=== PATIENT | female | born 1955 | race Caucasian/White ===

== ENCOUNTER 2017-10-11 19:34 | Observation (INO) ==
--- NOTE | 2017-10-11 20:35 | Emergency Department Note ---
Disposition Clinical Impression: Altered mental status, History of fall Disposition: Admitted As Inpatient Condition: Fair Time of Disposition: 22:20 General Adult HPI - General Chief complaint: ED Neuro Symptoms/Deficit Stated complaint: headache, neuro symptoms Time Seen by Provider: 10/11/17 19:49 Source: family Limitations: no limitations Nursing Notes Reviewed: Yes Vital Signs Reviewed: Yes - History of Present Illness HPI Narrative: Patient is a 62-year-old female who presents to the ED with her with complaints of right upper back pain, CHANEY, and difficulty speaking. Patient's states that she was seen initially approximately 7 weeks ago after a fall at which time she had a brain bleed, facial fracture, and neck fracture. She completed 6 weeks of therapy under [place]'s care and was released as a patient approximately one week ago. She was improving significantly up until approximately one week ago. She was seen 2 days ago after a fall with similar symptoms including slow speech, instable gait, and continued upper back pain. The patient's states she is similar now to when she had a concussion. She states the pain in her back is the most severe on the right side near her shoulder blade and this is her main concern. She otherwise denies any visual changes, weakness, numbness, tingling, weight loss, nausea, vomiting, diarrhea, abdominal pain, CP, or SOB. Pain Scale: 9 - Related Data Home Medications Medication Instructions Recorded Confirmed RX: No Known Home Drugs 10/11/17 10/11/17 Allergies Allergy/AdvReac Type Severity Reaction Status Date / Time acetaminophen [From Percocet] Allergy See Verified 08/13/17 10:09 Comments Oxycodone [From Percocet] Allergy See Verified 08/13/17 10:09 Comments diphenhydramine AdvReac See Verified 08/13/17 10:09 [From Benadryl] Comments ibuprofen AdvReac See Verified 08/13/17 10:09 Comments Constitutional: Denies: fever, chills, weakness, weight change Eyes: Denies: eye pain, vision change Cardiovascular: Denies: chest pain, palpitations Respiratory: Denies: cough, dyspnea, wheezes Gastrointestinal: Denies: abdominal pain, nausea, vomiting, diarrhea Genitourinary: Denies: dysuria, hematuria Musculoskeletal: Reports: back pain Integumentary: Denies: rash, abrasion Neurological: Reports: headache, abnormal gait Psychiatric: Reports: depression. Denies: anxiety Endocrine: Denies: fatigue Past Medical History - Past Medical History Source: patient, obtained from family Medical history: Reports: arthritis, cancer, CVA Surgical history: Reports: breast surgery (Bilateral mastectomy), cancer surgery , orthopedic, other (Cervical fixation) Psychiatric history: Reports: depression - Social History Smoking Status: Current every day smoker Smokeless Tobacco Status: No Alcohol use: Reports: rarely Drug use: Reports: none Physical Exam - General Limitations: no limitations General appearance: alert, in no apparent distress - Head Head exam: atraumatic, normocephalic - Eye Eye exam: Present: normal appearance, PERRL, EOMI. Absent: nystagmus - Neck Neck exam: Present: normal inspection, trachea midline - Chest Chest inspection: Present: normal inspection, symmetric chest wall rise. Absent : tenderness, rash - Respiratory Respiratory exam: Present: normal lung sounds bilaterally. Absent: respiratory distress, wheezes, stridor - Cardiovascular Cardiovascular exam: Present: regular rate, normal rhythm - Abdominal Exam Abdominal exam: Present: soft, Non-Tender. Absent: distention, guarding - Extremities Exam Extremities exam: Present: normal inspection. Absent: pedal edema - Back Exam Back exam: Present: tenderness (right upper T3) - Expanded Neurological Exam Patient oriented to: Present: person (Knows the president, states the year is 1981, slow to speak), place. Absent: time Speech: Present: expressive aphasia (able to communicate but slow to express thoughts) Cranial nerves: EOM function (II, III, IV, ): Normal, facial sensation (V): Normal, facial palsy (VII): Normal, gag reflex (IX): Normal, spinal accessory function (XI): Normal, tongue deviation (XII): Normal Cerebellar function: finger to nose: Normal, heel to guillory: Normal Motor strength - LUE: 5/5 Motor strength - RUE: 5/5 Motor strength - LLE: 5/5 Motor strength - RLE: 5/5 Upper motor neuron exam: jesse neglect: Absent bilaterally, pronator drift: Absent bilaterally, Babinski sign: Absent bilaterally Sensory exam upper extremity: light touch: Normal, 2 point discrimination: Normal Sensory exam lower extremity: light touch: Normal, pin prick: Normal DTR: bicep (L): 2+, bicep (R): 2+, patellar (L): 2+, patellar (R): 2+, Achilles tendon (L): 2+, Achilles tendon (R): 2+ Coma Scale Eye Opening: Spontaneous Coma Scale Motor Response: Obeys Commands Coma Scale Verbal Response: Oriented Coma Scale Total: 15 - Psychiatric Psychiatric exam: Present: normal affect Course - Reevaluation(s) Reevaluation #1: Discussed with patient and family who do not feel comfortable keeping the patient at home given her multiple recent falls especially at nighttime. Time: 21:56 Reevaluation #2: Spoke with patient and regarding multiple pulmonary nodules seen again on CT. Encouraged smoking cessation with five minute conversation and impressed upon them the need for further evaluation of this nodule. Time: 22:08 Reevaluation #3: Spoke with Dr. Muro, who will admit the patient with consult to Dr. Ramirez. Time: 22:20 - Consultations Consultation #1: discussed case with neurology who recommends MRI and rehabilitation. Agrees to consult on admission if necessary. Time: 21:40 Vital Signs Temperature 97.7 F 10/11/17 19:36 Pulse Rate 87 10/11/17 19:36 Respiratory Rate 16 10/11/17 19:36 Blood Pressure 112/64 10/11/17 19:36 O2 Sat by Pulse Oximetry 96 10/11/17 19:36 Temperature 97.7 F 10/11/17 19:36 Pulse Rate 58 10/11/17 22:49 Respiratory Rate 14 10/11/17 22:49 Blood Pressure 101/84 10/11/17 22:49 O2 Sat by Pulse Oximetry 97 10/11/17 22:49 Oxygen Delivery Oxygen Delivery Room Air Medical Decision Making - [facility] Narrative Medical decision making narrative: Patient presented with stroke-like symptoms including CHANEY, weakness, and difficulty speaking status post fall two days prior. CT head and neck revealed no acute hemorrhage or fracture. CBC and CMP were unremarkable. Chest XR revealed no acute findings. Her pain continues to persist in her upper back. With her many recent falls CT lumbar and thoracic spine were ordered which revealed no acute fractures. Given that she has seemingly reverted back to her mental status which occurred after her concussion, it is likely she is again post-concussive. Dr. Ramirez, neurology recommends MRI to further evaluate and potentially neuro rehab. Will admit under Dr. Muro who has accepted the patient with consult to neurology. - Medical Records Medical records reviewed: Yes I reviewed the patient's medical records. - Lab Data Lab results reviewed: Yes I reviewed the patient's lab results. Result diagrams: 10/11/17 20:27 10/11/17 20:27 Lab Results 10/11/17 10/11/17 Range/Units 20:27 20:27 WBC 6.7 (4.3-11.1) K/mcL RBC 3.95 (3.82-4.97) M/mcL Hgb 12.5 (11.5-15.4) g/dL Hct 36.0 (35.3-44.9) % MCV 91.1 (83.0-100.0) fL MCH 31.6 (28.0-33.3) pg MCHC 34.7 (31.6-35.5) g/dL RDW 14.9 H (11.5-14.5) % Plt Count 336 (140-400) K/mcL MPV 9.1 L (9.4-12.4) fL Immature Gran % 0.3 (0-4) % Seg Neutrophils % 57.3 % Lymphocytes % 32.0 % Monocytes % 6.1 % Eosinophils % 3.7 % Basophils % 0.6 % Neutrophils # 3.9 (1.6-8.9) K/mcL Lymphocytes # 2.2 (0.6-4.6) K/mcL Monocytes # 0.4 (0.0-1.3) K/mcL Eosinophils # 0.3 (0.0-0.6) K/mcL Basophils # 0.0 (0.0-0.2) K/mcL Sodium 137 (136-145) mEq/L Potassium 3.7 (3.5-5.1) mEq/L Chloride 105 (98-107) mEq/L Carbon Dioxide 23 (23-29) mEq/L BUN 12 (8-23) mg/dL Creatinine 0.73 (0.60-1.20) mg/dL Est GFR ( Amer) > 60 (> 60) Est GFR (Non-Af Amer) > 60 (> 60) BUN/Creatinine Ratio 16 (6-26) Glucose 102 (70-105) mg/dL Calculated Osmolality 284 (280-300) Calcium 9.6 (8.6-10.3) mg/dL - Radiology Data Radiology results reviewed: Yes I reviewed the patient's radiology results. Cervical Spine CT 10/11/17 19:52 IMPRESSION: No acute abnormality of the cervical spine. D/ / Brent Robert MD / Brent Robert MD Interpreting Provider: Brent Robert MD Chest X-Ray 10/11/17 19:52 IMPRESSION: No significant findings in the chest. D/ / Steve Meier MD / Steve Meier MD Interpreting Provider: Steve Meier MD Head CT 10/11/17 19:52 IMPRESSION: No acute intracranial abnormality. D/ / Eyad Ding MD / Eyad Ding MD Interpreting Provider: Eyad Ding MD Cervical Spine CT 10/11/17 19:52 IMPRESSION: No acute abnormality of the cervical spine. D/ / Brent Robert MD / Brent Robert MD Interpreting Provider: Brent Robert MD Chest X-Ray 10/11/17 19:52 IMPRESSION: No significant findings in the chest. D/ / Steve Meier MD / Steve Meier MD Interpreting Provider: Steve Meier MD Head CT 10/11/17 19:52 IMPRESSION: No acute intracranial abnormality. D/ / Eyad Ding MD / Eyad Ding MD Interpreting Provider: Eyad Ding MD Lumbar Spine CT 10/11/17 20:58 IMPRESSION: 1. No acute abnormality in the thoracic or lumbar spine. 2. Chronic degenerative changes most notable in the lumbar spine. Mild degree of scoliosis also noted. 3. Several pulmonary nodules bilaterally. These were evaluated on a recent CT chest. Follow-up recommendations provided on that study. D/ / Steve Meier MD / Steve Meier MD Interpreting Provider: Steve Meier MD Thoracic Spine CT 10/11/17 20:58
[2017-10-11 20:39] LABS: Basophils % 0.6 %; Eosinophils # 0.3 K/mcL (0.0-0.6); Eosinophils % 3.7 %; Hemoglobin 12.5 g/dL (11.5-15.4); Immature Granulocytes % 0.3 % (0-4); Lymphocytes # 2.2 K/mcL (0.6-4.6); Mean Corpuscular HGB Conc 34.7 g/dL (31.6-35.5); Mean Corpuscular Hemoglobin 31.6 pg (28.0-33.3); Mean Corpuscular Volume 91.1 fL (83.0-100.0); Mean Platelet Volume 9.1 fL (9.4-12.4); Monocytes # 0.4 K/mcL (0.0-1.3); Monocytes % 6.1 %; Neutrophils # 3.9 K/mcL (1.6-8.9); Platelet Count 336 K/mcL (140-400); Red Blood Count 3.95 M/mcL (3.82-4.97); Red Cell Distribution Width 14.9 % (11.5-14.5); Segmented Neutrophils % 57.3 %
[2017-10-11 20:57] LABS: BUN/Creatinine Ratio 16 (6-26); Blood Urea Nitrogen 12 mg/dL (8-23); Calcium 9.6 mg/dL (8.6-10.3); Carbon Dioxide 23 mEq/L (23-29); Chloride 105 mEq/L (98-107); Glucose 102 mg/dL (70-105); Osmolality,Calculated 284 (280-300); Potassium 3.7 mEq/L (3.5-5.1); Sodium 137 mEq/L (136-145); eGFR For African Americans > 60 (> 60); eGFR For Non-African Americans > 60 (> 60)
[2017-10-11] MEDS ORDERED: *HR* FentaNYL (PF) 100 MCG/2 ML VIAL IVP ONE (20:58)
--- NOTE | 2017-10-11 21:49 | Emergency Department Note ---
Disposition Clinical Impression: Altered mental status, History of fall Disposition: Admitted As Inpatient Condition: Fair Neuro HPI - General Chief Complaint: ED Neuro Symptoms/Deficit Stated Complaint: headache, neuro symptoms Time Seen by Provider: 10/11/17 19:49 Source: family Limitations: no limitations Nursing Notes Reviewed: Yes Vital Signs Reviewed: Yes - Related Data Home Medications: Home Medications Medication Instructions Recorded Confirmed No Known Home Drugs 10/11/17 10/11/17 Allergies/Adverse Reactions: Allergies Allergy/AdvReac Type Severity Reaction Status Date / Time acetaminophen [From Percocet] Allergy See Verified 08/13/17 10:09 Comments Oxycodone [From Percocet] Allergy See Verified 08/13/17 10:09 Comments diphenhydramine AdvReac See Verified 08/13/17 10:09 [From Benadryl] Comments ibuprofen AdvReac See Verified 08/13/17 10:09 Comments Constitutional: Denies: fever, chills, weakness, weight change Eyes: Denies: eye pain, vision change Cardiovascular: Denies: chest pain, palpitations Respiratory: Denies: cough, dyspnea, wheezes Gastrointestinal: Denies: abdominal pain, nausea, vomiting, diarrhea Genitourinary: Denies: dysuria, hematuria Musculoskeletal: Reports: back pain Integumentary: Denies: rash, abrasion Neurological: Reports: headache, abnormal gait Psychiatric: Reports: depression. Denies: anxiety Endocrine: Denies: fatigue Past Medical History - Past Medical History Medical history: Reports: arthritis, cancer, CVA Surgical history: Reports: breast surgery (Bilateral mastectomy), cancer surgery , orthopedic, other (Cervical fixation) Psychiatric history: Reports: depression - Social History Smoking Status: Current every day smoker Smokeless Tobacco Status: No Alcohol use: Reports: rarely Drug use: Reports: none Physical Exam - General Limitations: no limitations General appearance: alert, in no apparent distress Course Vital Signs Temperature 97.7 F 10/11/17 19:36 Pulse Rate 87 10/11/17 19:36 Respiratory Rate 16 10/11/17 19:36 Blood Pressure 112/64 10/11/17 19:36 O2 Sat by Pulse Oximetry 96 10/11/17 19:36 Temperature 98.4 F 10/12/17 22:33 Pulse Rate 63 10/12/17 22:33 Respiratory Rate 16 10/12/17 22:33 Blood Pressure 127/72 10/12/17 22:33 O2 Sat by Pulse Oximetry 97 10/12/17 22:33 Oxygen Delivery Oxygen Delivery Room Air Neuro Symptoms/Deficit - Lab Data Result diagrams: 10/11/17 20:27 10/11/17 20:27 Lab Results 10/11/17 10/11/17 Range/Units 20:27 20:27 WBC 6.7 (4.3-11.1) K/mcL RBC 3.95 (3.82-4.97) M/mcL Hgb 12.5 (11.5-15.4) g/dL Hct 36.0 (35.3-44.9) % MCV 91.1 (83.0-100.0) fL MCH 31.6 (28.0-33.3) pg MCHC 34.7 (31.6-35.5) g/dL RDW 14.9 H (11.5-14.5) % Plt Count 336 (140-400) K/mcL MPV 9.1 L (9.4-12.4) fL Immature Gran % 0.3 (0-4) % Seg Neutrophils % 57.3 % Lymphocytes % 32.0 % Monocytes % 6.1 % Eosinophils % 3.7 % Basophils % 0.6 % Neutrophils # 3.9 (1.6-8.9) K/mcL Lymphocytes # 2.2 (0.6-4.6) K/mcL Monocytes # 0.4 (0.0-1.3) K/mcL Eosinophils # 0.3 (0.0-0.6) K/mcL Basophils # 0.0 (0.0-0.2) K/mcL Sodium 137 (136-145) mEq/L Potassium 3.7 (3.5-5.1) mEq/L Chloride 105 (98-107) mEq/L Carbon Dioxide 23 (23-29) mEq/L BUN 12 (8-23) mg/dL Creatinine 0.73 (0.60-1.20) mg/dL Est GFR ( Amer) > 60 (> 60) Est GFR (Non-Af Amer) > 60 (> 60) BUN/Creatinine Ratio 16 (6-26) Glucose 102 (70-105) mg/dL Calculated Osmolality 284 (280-300) Calcium 9.6 (8.6-10.3) mg/dL TPA Checklist - LKW: 3-4.5 hrs Add. Warnings/Precautions Patient/family understanding: The patient/family members have been counseled and understood the risk, benefit , and alternatives of treatment. Attestation Statement - Attestation Attestation: I, Wali Marin, examined this patient and my medical decision-making was reviewed with the [employer] MANAGER/PA/Advanced Practice Nurse/Resident Physician. I agree with the documented findings, disposition and treatment plan as described except to the extent set forth below. 62-year-old female presents emergency Department with concerns of slurred speech and confusion after a fall 2 days ago. Patient had a fall 7 weeks ago which caused a significant contusion. Since that time she had fallen again twice, one which caused a cervical fracture and a subdural bleed. Patient's symptoms of slurred speech and mild aphasia and confusion returned after the most recent fall 2 days ago. The symptoms are similar to her previous concussion. She followed [facility] for evaluation of her postconcussive syndrome which had improved. Patient has no focal neurologic deficits on exam. CT of the head and neck was negative for acute fracture or intracranial hemorrhage. Laboratory evaluation is largely within normal limits. Falls have occurred at night while trying to get out of bed. Patient complained of back pain after the most recent fall. CT of the thoracic and lumbar spine is pending at this time. Disposition pending at this time.
[2017-10-11] MEDS ORDERED: Naloxone 0.4 MG/ML INJ IVP PRN (23:44)
--- NOTE | 2017-10-11 23:46 | Internal Med History&Physical ---
<Wendy Doll - Last Filed: 10/12/17 01:08> Date of Encounter: 10/12/17 Time of Encounter: 23:46 Internal Medicine - H&P: HPI Chief complaint: Back pain and difficulty speaking Admitted From: Emergency Dept Plans for Post Hospital Care: Home History of present illness: Ms. Cleaning is a 62 year old female with past medical history of brain hemorrhage 7 weeks ago presented to [facility] ED complaining of increasing difficulty speaking and upper back pain. She reported that 7 weeks ago she fell and had a brain hemorrhage, facial fracture, neck fracture for which she was seen at [facility]. No medical intervention was done at that time. She was discharged back to her home and not undergo PT/OT. She had been improving until about a week ago when she started having increasing difficulty speaking, occasional unstable gait, difficulty thinking which were similar post- concussive symptoms she had after the fall. Then, Wednesday10/08/2017 she rolled out of bed twice and was seen at [place] ED the next day. Imaging showed no fracture and she was discharged home. Today she comes in because of the symptoms not improving along with right-sided back pain since she rolled out of bed. Her neurologist is at [facility]. She denies change in vision, chest pain, shortness of breath, numbness, tingling, weakness, confusion, nausea, vomiting. She is alongside her . 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 In the ED, head CT, chest x-ray, cervical CT demonstrated no acute process. Thoracic and lumbar spine CT demonstrated mild scoliosis, chronic degeneration, bilateral pulmonary nodules. The patient is aware of the pulmonary nodules and is planning to follow up with her PCP. Neurologist Dr. Ramirez had been consulted and recommended a brain MRI. Past Med Surg Social Fam HX - Past Medical History Attestation: Yes The following information was validated with the patient. Source: patient Medical history: arthritis, cancer, CVA Additional medical history: neck fracture. orbital fracture. brain bleed. breast cancer Psychiatric history: depression - Past Surgical History Surgical History: breast surgery (Bilateral mastectomy), cancer surgery, orthopedic, other (Cervical fixation) Additional surgical history: bilat masectomy. neck fusion sx - Social History Smoking Status: Current every day smoker Smokeless Tobacco Status: No Alcohol use: rarely Drug use: none - Family History Mother Living Status: Still Living Hx Family Cardiac Disorders: Yes (htn) Hx Family Endocrine Disorder: Yes (dm) Hx Family Neurologic Disorders: Yes (tia) Internal Medicine - H&P: Meds No Known Home Drugs 10/11/17 [History] 3 Allergy/AdvReac Type Severity Reaction Status Date / Time acetaminophen [From Percocet] Allergy See Verified 08/13/17 10:09 Comments Oxycodone [From Percocet] Allergy See Verified 08/13/17 10:09 Comments diphenhydramine AdvReac See Verified 08/13/17 10:09 [From Benadryl] Comments ibuprofen AdvReac See Verified 08/13/17 10:09 Comments All Systems PM: A 10-system review of systems was performed and is negative for pertinent findings except as documented above in the HPI. - Constitutional Constitutional: no chills, no fever(s), no malaise - EENT Eyes: no loss of vision - Cardiovascular Cardiovascular ROS IM: no chest pain, no diaphoresis, no palpitations - Respiratory Respiratory: no cough, no dyspnea, no wheezing - Gastrointestinal Gastrointestinal: no abdominal pain, no diarrhea, no nausea, no vomiting - Genitourinary Genitourinary: no dysuria - Musculoskeletal Musculoskeletal ROS IM: back pain (Right upper back) - Integumentary Integumentary IM: no erythema, no new lesions - Neurological Neurological ROS: abnormal speech (Slower speech), disequilibrium, frequent falls, headache(s), no abnormal hearing, no confusion, no dizziness, no focal weakness, no loss of vision, no numbness, no paresthesias, no tingling, no vertigo, no weakness - Psychiatric Psychiatric: no confusion - Endocrine Endocrine IM: fatigue - Hematologic/Lymphatic Hematologic/Lymphatic: easy bleeding - Constitutional Vitals: Temp Pulse Resp BP Pulse Ox 97.7 F 74 15 107/52 99 10/11/17 19:36 10/11/17 23:37 10/11/17 23:37 10/11/17 23:37 10/11/17 23:37 General appearance: Present: A&O X 3, pleasant, no acute distress - Head Head exam: Present: atraumatic (Tender on one spot where she received sutures), normal inspection, normocephalic - Eye Eye exam: Present: normal appearance. Absent: conjunctival injection - Respiratory Respiratory exam: Present: CTAB. Absent: rales, wheezes - Cardiovascular Cardiovascular exam: Present: RRR, +S1, +S2 - GI/Abdominal GI/Abdominal exam: Present: normal bowel sounds, soft. Absent: distended, firm , guarding, tenderness - Extremities Exam Extremities exam: Present: normal inspection. Absent: calf tenderness - Back Exam Back exam: Present: tenderness (Right upper back). Absent: paraspinal tenderness, rash noted, vertebral tenderness - Neurological Exam Neurological exam: Present: alert, oriented X3, no focal deficits, strengths equal and symetr throughout. Absent: pronater drift, speech deficit (Slower speech) - Psychiatric Psychiatric exam: Present: normal affect, normal mood - Skin Skin exam: Present: dry, intact Internal Med - H&P Results - Labs CBC & Chem 7: 10/11/17 20:27 10/11/17 20:27 - Assessment and plan (1) Back pain Current Visit: Yes Status: Acute Assessment and plan: Likely musculoskeletal pain. Right upper back tenderness since rolling out of bed 3 days ago. No fracture on imaging with chest x-ray, cervical spine CT, thoracic spine CT, lumbar spine CT -chest x-ray, cervical CT demonstrated no acute process. Thoracic and lumbar spine CT demonstrated mild scoliosis, chronic degeneration, bilateral pulmonary nodules. -continue lidocaine patch Qualifiers: Back pain location: thoracic back pain Back pain laterality: right Qualified Code(s): M54.6 - Pain in thoracic spine (2) History of fall Current Visit: Yes Status: Acute Assessment and plan: History of fall 7 weeks ago which led to a CVA and since then she has had occasional unsteadiness in her gait. She rolled out of bed 4 days ago. She has not undergone PT/OT. -Ordered PT/OT evaluation (3) History of hemorrhagic cerebrovascular accident (CVA) with residual deficit Current Visit: Yes Status: Acute Assessment and plan: History of brain hemorrhage 7 weeks ago after a fall, required no medical intervention. Has residual deficits with slower speaking, difficulty thinking, occasional unsteady gait. (4) Pulmonary nodules Current Visit: Yes Status: Acute Assessment and plan: Bilateral pulmonary nodules were re- demonstrated by Thoracic and lumbar spine CT -The patient is aware of the pulmonary nodules and is planning to follow up with her PCP. (5) Encounter for smoking cessation counseling Current Visit: Yes Status: Acute Assessment and plan: Current smoker one pack per day. She is not interested in quitting smoking at this time despite counseling on recommendations to quit. (6) DVT prophylaxis Current Visit: Yes Status: Acute Assessment and plan: SCD due to recent fall and history CVA (7) Unsteady gait Current Visit: Yes Status: Acute Assessment and plan: Likely residual deficits from head trauma resulting in CVA. Unlikely to be new hemorrhage due to no new symptoms and imaging negative for acute hemorrhage. Residual deficits since CVA from fall 7 weeks ago including slower speech, difficulty thinking, occasional unsteadiness in gait, headache. She reports symptoms had improved, however a week ago they started to worsen again. She rolled out of bed 4 days ago after which she was evaluated at [place] ED and imaging was negative for acute hemorrhage or fracture. Her symptoms have not improved and she is now having right upper back pain. -Head CT no acute intracranial process including hemorrhage Plan -Neurologist Dr. Ramirez had been consulted and recommended a brain MRI -brain MRI ordered -fall precautions -NIHS -PT/OT ordered - Time Spent With Patient Total time spent is greater than 50% in coordination of care (as documented) at patient's floor/unit and/or counseling patient: <Anitra Li N - Last Filed: 10/12/17 03:34> Date of Encounter: 10/12/17 Internal Medicine - H&P: HPI History of present illness: Ms. Cleaning is a 62 year old female All Systems PM: A 10-system review of systems was performed and is negative for pertinent findings except as documented above in the HPI. - Constitutional Vitals: Temp Pulse Resp BP Pulse Ox 97.8 F 61 14 116/71 94 10/12/17 00:31 10/12/17 00:31 10/12/17 00:31 10/12/17 00:31 10/12/17 00:31 Internal Med - H&P Results - Labs CBC & Chem 7: 10/11/17 20:27 10/11/17 20:27 - Attending Attestation Patient seen and examined, plan discussed with the resident physician as listed above, history and physical reviewed and agreed with the plan S 62-year-old female with past medical history of hemorrhagic stroke with residual slurred speech, mild cognitive impairment and unsteady gait. Patient stated her condition has been getting better over last 2 months. Today while she was rolling in bed she fell down on the floor x2, family noticed that her speech and gait got worse and came after her fall. Patient denies any focal motor or sensory changes compared to her baseline after her hemorrhagic stroke. No seizure Chest clear to auscultation bilateral Heart S1-S2 normal regular rate and rhythm Abdomen soft Extremities no edema tenderness He speech slurred and slow had trouble with word finding A/P Possible TIA Possible postconcussion syndrome Possible seizure With patient having occasional unsteady gait more than usual rolling and falling twice from. While sleeping cannot rule out seizure induced by her hemorrhagic stroke will check EEG tomorrow morning, gentle hydration, check fasting lipid profile, speech therapy consult PTOT, neurosurgeon to fight by ER . - Assessment and plan (1) History of fall Current Visit: Yes Status: Acute (2) Back pain Current Visit: Yes Status: Acute Qualifiers: Back pain location: thoracic back pain Back pain laterality: right Qualified Code(s): M54.6 - Pain in thoracic spine (3) DVT prophylaxis Current Visit: Yes Status: Acute (4) History of hemorrhagic cerebrovascular accident (CVA) with residual deficit Current Visit: Yes Status: Acute (5) Encounter for smoking cessation counseling Current Visit: Yes Status: Acute (6) Pulmonary nodules Current Visit: Yes Status: Acute (7) Unsteady gait Current Visit: Yes Status: Acute - Time Spent With Patient Total time spent is greater than 50% in coordination of care (as documented) at patient's floor/unit and/or counseling patient:
[2017-10-12] MEDS ORDERED: traMADol 50 MG TABLET PO PRN (01:10)
[2017-10-12 05:11] LABS: Magnesium 2.1 mg/dL (1.6-2.6)
[2017-10-12] MEDS: 0.9 % Sodium Chloride 1,000 ML IVC SCH ×3 (07:49→20:24)
--- NOTE | 2017-10-12 15:29 | Event Note ---
Date of Encounter: 10/12/17 Time of Encounter: 15:27 Patient seen and examined at the bedside today patient was getting ready to do an EEG. She has been admitted for an acute fall and weakness. We are ruling out a seizure versus a new stroke. Should patient underwent already underwent an MRI which did not show any acute infarct. Neurology has been consulted and we are awaiting final recommendations. She does have a history of traumatic brain hemorrhage several weeks ago and usually sees her neurologist at an outside hospital. Once the workup is complete most likely will plan on discharging her tomorrow.
--- NOTE | 2017-10-12 17:28 | Neurology - Consult Note ---
Date of Encounter: 10/12/17 Time of Encounter: 15:25 Assessment and Plan (1) History of fall Current Visit: Yes Status: Acute This patient who apparently having frequent falls without any obvious reason most of time she is felling off the bed and her most falls are during the sleep and has significant injuries including fracture of the facial bones and bleeding in the head. symptoms are quite unusual and presentation As it is not the regular fall that she is been having during the daytime by losing the balance. She did not give any history to be suggestive of seizures during the sleep but that remains a possibility that she could be having some nocturnal seizures causing her to fall that bad causing these significant injuries. She is already been evaluated at the [place] from her previous admission no intervention was done because of the bleed. This time no evidence of any bleed on CT scan and MRI of the brain. At the same time no evidence of any fracture in her cervical thoracic or lumbar spine on imaging studies. Patient does had a EEG which I reviewed that did not show any abnormal activity. At the moment would not recommend starting any new medication. She would need further workup including ambulatory or long-term video EEG or perhaps sleep studies as an outpatient in order to find the reason that she is been following during sleep She had been evaluated at the [facility] I would recommend follow-up with the neurologist up there for long-term video EEG monitoring. As far as her gait and balance is concern may benefit from physical therapy evaluation Continue on her home medication may check for other metabolic abnormalities that sometime could be contributing to these symptoms. From neurology standpoint patient is stable no focal motor deficit on examination (2) Unsteady gait Current Visit: Yes Status: Acute History of Present Illness HPI: Ms. Cleaning is a 62 year old female with past medical history of brain hemorrhage 7/8 weeks ago after traumtic fall, presented to [facility] ED complaining of increasing difficulty speaking and upper back pain. She reported that 7 weeks ago she fell and had a brain hemorrhage, facial fracture, neck fracture for which she was seen at [facility]. No medical intervention was done at that time. She had been improving until about a week ago when she started having increasing difficulty speaking, occasional unstable gait, difficulty thinking, Wednesday10/08/2017 she rolled out of bed twice and was seen at [place] ED the next day. Imaging showed no fracture and she was discharged home. Today she comes in because of the symptoms not improving along with right-sided back pain since she rolled out of bed. . PT had head CT, chest x-ray, cervical CT , thoracic CT< lumbar CT all were negative and no acute process reported. She denies change in vision, chest pain, shortness of breath, numbness, tingling, weakness, confusion, nausea, vomiting. Past Med Surg Social Fam HX - Past Medical History Medical history: arthritis, cancer, CVA Additional medical history: neck fracture. orbital fracture. brain bleed. breast cancer Psychiatric history: depression - Past Surgical History Surgical History: breast surgery (Bilateral mastectomy), cancer surgery, orthopedic, other (Cervical fixation) Additional surgical history: bilat masectomy. neck fusion sx - Social History Smoking Status: Current every day smoker Packs per day: 1 Smokeless Tobacco Status: No Alcohol use: rarely Drug use: none - Family History Mother Living Status: Still Living Hx Family Cardiac Disorders: Yes (htn) Hx Family Endocrine Disorder: Yes (dm) Hx Family Neurologic Disorders: Yes (tia) Medications and Allergies No Known Home Drugs 10/11/17 [History] 3 Allergy/AdvReac Type Severity Reaction Status Date / Time acetaminophen [From Percocet] Allergy See Verified 08/13/17 10:09 Comments Oxycodone [From Percocet] Allergy See Verified 08/13/17 10:09 Comments diphenhydramine AdvReac See Verified 08/13/17 10:09 [From Benadryl] Comments ibuprofen AdvReac See Verified 08/13/17 10:09 Comments All Systems: The remainder of the systems were reviewed and are negative Physical Examination - Vital Signs Vital Signs: Initial Vital Signs Temp Pulse Resp BP Pulse Ox 97.7 F 87 16 112/64 96 10/11/17 19:36 10/11/17 19:36 10/11/17 19:36 10/11/17 19:36 10/11/17 19:36 - Exam Exam: GENERAL: Comfortable in no acute distress HEENT: Normal LUNGS: CTA HEART: RRR, S1 S2 Audible, no murmur EXTREMITIES: No Pedal edema. DETAILED NEUROLOGICAL EXAMINATION: MENTAL STATUS: Oriented to person, place, date and situation. Memory: knows the President, Aware of recent events Recent Memory Intact Cranial Nerve Examination: CN - II: Visual Acuity, Field of Vision Normal, Fundus examination: No disk edema, Pupils- size shape reaction to light and accommodation: All normal. CN III, IV, : External ocular movements were intact, Pupils were reactive, Nodrooping of the eyelids CN V: Sensation over the face to light touch and pinprick all normal. Corneal reflexes not tested, jaw jerk normal. CN VII: No facial asymmetry, no flattening of nasolabial folds, no difficulty in closing the eyes, no loss of forehead wrinkles, no difficulty in eye-closure, frowning raising eyebrows. CNVIII: No significant hearing loss CN IX, X: Uvula centralized not deviated, Gag reflex: Not tested CN X1: Sternocleidomastoid, trapezius, normal or evidence of any weakness. CN X11: No Dysarthria, no wasting or fibrilation f tongue muscles, no deviation, tongue muscle strength normal. Motor examination: No hypertrophy, tone was normal, power grade 0-5 Upper limbs Proximal- No difficulty in lifting the arms above the head. Distal- No weakness in distal muscles On formal testing 5/5 all over Lower limbs On formal testing 5/5 all over Coordination: Ulgqll-[id number]-flks normal. Target pursuit normal finger tapping normal, Rapid alternating moment of wrist normal Sensory system: Superficial sensations- Touch normal. Pain- Pinprick, Temperature all normal, Deep sensation normal, Joint position sense normal. Cortical sensation, Tactile discrimination, localization and extinction all normal. Deep tendon reflexes. Symmetrical bilateral, No evidence of Babinski. No sign of meningeal irritation Gait Examination: Deferred - Constitutional General appearance: comfortable - Neurologic Mental Status Examination: awake, alert, oriented to person, oriented to place, oriented to time, follows commands appropriately, answers questions appropriately Cranial nerve examination: PERRL, EOMI, visual finney intact, corneal reflexes brisk symmetrically, sensory to face intact, mastication intact, no facial asymmetry is present, no dysarthria, hearing is intact symmetrically, soft palate elevates bilaterally upon phonation, gag reflex intact, flexes SCM and trapezius muscles symmetrically with full power, tongue protrudes midline, no atrophy or facial fasiculations present Results - Laboratory Findings CBC and BMP: 10/11/17 20:27 10/11/17 20:27 Abnormal lab findings: Abnormal lab results RDW 14.9 % (11.5-14.5) H 10/11/17 20:27 MPV 9.1 fL (9.4-12.4) L 10/11/17 20:27 - Diagnostic Findings Additional findings: MRI No acute intracranial abnormality. No acute infarct. 2. Minimal global parenchymal volume loss with mild chronic microvascular ischemic change. Consult Discharge Plan - Plan Referrals: Alcon Ruff DO [Primary Care Provider] -
--- NOTE | 2017-10-12 17:35 | EEG/EMG/Oth Biometrics Report ---
EEG Procedure Report Date of procedure: 10/12/17 EEG Procedure: Routine EEG Procedure Note: This is a routine 21 channel digital EEG performed utilizing 10- 20 international electrode placement system. FINDINGS: Patient has a predominant waking background frequency that is average voltage 8 to 10 Hertz alpha activity in the posterior region, normal amplitude symmetrical over the both hemispheres reactive to eyes opening and closing record continued to show alpha activity intermixed with some theta off and on, no abnormal activity recorded, predominantly no evidence of any spike wave discharges or any lateralizing abnormalities, Photic stimulation and hyperventilation did not produce any convulsive response. Intermittent EMG artifacts were noted. Stage II sleep was not achieved. Impression: Normal awake drowsy electroencephalogram. With the exception of some beta activity could be related to the medication side effect No epileptiform discharges or any other paroxysmal activities noted. ( Please note that normal EEG does not exclude the diagnosis of seizures or epilepsy, clinical correlation is suggested)
[2017-10-13] MEDS: 0.9 % Sodium Chloride 1,000 ML IVC SCH (05:51)
[2017-10-13 07:21] VITALS: BP 101/68
--- NOTE | 2017-10-13 09:31 | Discharge Summary ---
- NOTES TO OUTPATIENT PROVIDER Notes to Outpatient Provider: Follow-up needed for including ambulatory and long -term video EEG or sleep study as an outpatient. patient needs to be followed up by her outpatient neurologist for the same. Also needs outpatient follow-up for pulmonary nodules Date of Encounter: 10/13/17 Time of Encounter: 09:30 - Discharge Diagnosis (1) History of fall Priority: Primary Status: Acute (2) Back pain Priority: Secondary Status: Acute Qualifiers: Back pain location: thoracic back pain Back pain laterality: right Qualified Code(s): M54.6 - Pain in thoracic spine (3) DVT prophylaxis Priority: Secondary Status: Acute (4) History of hemorrhagic cerebrovascular accident (CVA) with residual deficit Priority: Secondary Status: Acute (5) Encounter for smoking cessation counseling Priority: Secondary Status: Acute (6) Pulmonary nodules Priority: Secondary Status: Acute (7) Unsteady gait Priority: Secondary Status: Acute Hospital course: Ms. Cleaning is a 62 year old female who was admitted with frequent falls without any obvious reason. Most of the falls happen during sleep and she has had significant injuries including fractures of facial bones and bleeding of the head. She has had a history of traumatic brain injury in the past but denied any having any seizure activity. CT scan of the brain was negative for bleeding and MRI was negtive for CVA. A brief bedisde EEG did no show any epileptiform activty. Seen by Neuro and per EMR recomendation are- "She would need further workup including ambulatory or long-term video EEG or perhaps sleep studies as an outpatient in order to find the reason that she is been following during sleep She had been evaluated at the [facility] I would recommend follow-up with the neurologist up there for long-term video EEG monitoring. As far as her gait and balance is concern may benefit from physical therapy evaluation" Discharge discussed with: patient Time spent discussing smoking cessation with patient: more than 10 minutes - Time Spent with Patient Total time spent providing and/or coordinating discharge services: Greater than 30 minutes - Discharge Medications Home Medications: No Known Home Drugs 10/11/17 [History] Allergies/Adverse Reactions: 3 Allergy/AdvReac Type Severity Reaction Status Date / Time acetaminophen [From Percocet] Allergy See Verified 08/13/17 10:09 Comments Oxycodone [From Percocet] Allergy See Verified 08/13/17 10:09 Comments diphenhydramine AdvReac See Verified 08/13/17 10:09 [From Benadryl] Comments ibuprofen AdvReac See Verified 08/13/17 10:09 Comments Date of admission: 10/11/17 22:59 Primary care physician: Alcon Ruff DO Consults: 10/12/17 16:37 Consult to Interpret Exam [CONS] Routine Consulting Provider: Jin Ramirez I Consult to Interpret Exam: Interpret EEG - Constitutional Vitals: Temp Pulse Resp BP Pulse Ox 97.6 F 69 16 101/68 97 10/13/17 07:20 10/13/17 07:20 10/13/17 07:20 10/13/17 07:20 10/13/17 07:20 General appearance: Present: A&O X 3, pleasant, no acute distress Exam: GENERAL: Alert, no distress, cooperative EYES: PERRLA, EOMI EARS: External ears normal, canals clear OROPHARYNX: Lips, mucosa, and tongue normal. Teeth and gums normal. Oropharynx normal. NECK: No jugulovenous distention, No carotid bruits, Carotid pulse normal contour, Supple LUNGS: Lungs clear to auscultation, Good diaphragmatic excursion CARDIAC: Normal S1 and S2; no rubs, murmurs, or gallops ABDOMEN: Abdomen soft, non-tender, BS normal, No masses or organomegaly - Patient Status Disposition: Home, Self-Care Condition: Fair Functional capacity at discharge: independent ambulation Overall status at discharge: patient is back to baseline - Discharge Instructions Follow Up With: Alcon Ruff DO [Primary Care Provider] - - Diet and Activity Activity: increase activity as tolerated Diet: advance to your usual diet
--- NOTE | 2017-10-13 15:59 | Neurology Progress Note ---
Date of Encounter: 10/13/17 Time of Encounter: 07:30 Assessment and Plan (1) History of fall Status: Acute This patient who apparently having frequent falls without any obvious reason most of time she is felling off the bed and her most falls are during the sleep and has significant injuries including fracture of the facial bones and bleeding in the head. symptoms are quite unusual and presentation As it is not the regular fall that she is been having during the daytime by losing the balance. She did not give any history to be suggestive of seizures during the sleep but that remains a possibility that she could be having some nocturnal seizures causing her to fall that bad causing these significant injuries. She is already been evaluated at the [place] from her previous admission no intervention was done because of the bleed. This time no evidence of any bleed on CT scan and MRI of the brain. At the same time no evidence of any fracture in her cervical thoracic or lumbar spine on imaging studies. Patient does had a EEG which I reviewed that did not show any abnormal activity. She would need further workup including ambulatory or long-term video EEG or perhaps sleep studies as an outpatient in order to find the reason that she is been following during sleep She had been evaluated at the [facility] I would recommend follow-up with the neurologist up there for long-term video EEG monitoring. As far as her gait and balance is concern may benefit from physical therapy evaluation Continue on her home medication may check for other metabolic abnormalities that sometime could be contributing to these symptoms. From neurology standpoint patient is stable no focal motor deficit on examination Suggest follow-up with the prominent neurologist or with the neurology for long- term video EEG monitoring may need sleep studies. No indication to start on any seizure medication at this time. (2) Unsteady gait Status: Acute Subjective Interval history: stable denies any other new symptoms or any other new problems. No evidence of a stroke on examination or imaging studies. EEGs also negative for any seizures. Objective - Constitutional Vitals: Temp Pulse Resp BP Pulse Ox 97.6 F 69 16 101/68 97 10/13/17 07:20 10/13/17 07:20 10/13/17 07:20 10/13/17 07:20 10/13/17 07:20 - Neurological Exam Mental Status Examination: Present: awake, alert, oriented to person, oriented to place, oriented to time, follows commands appropriately, answers questions appropriately Cranial nerve examination: Present: PERRL, EOMI, visual finney intact, corneal reflexes brisk symmetrically, sensory to face intact, mastication intact, no facial asymmetry is present, no dysarthria, hearing is intact symmetrically, soft palate elevates bilaterally upon phonation, gag reflex intact, flexes SCM and trapezius muscles symmetrically with full power, tongue protrudes midline, no atrophy or facial fasiculations present Results - Laboratory Findings CBC and BMP: 10/11/17 20:27 10/11/17 20:27 Abnormal lab findings: Abnormal lab results RDW 14.9 % (11.5-14.5) H 10/11/17 20: MPV 9.1 fL (9.4-12.4) L 10/11/17 20:27 Consult Discharge Plan - Plan Instructions: Transient Ischemic Attack (DC) Additional Instructions: Follow-up appointments: If there is not an appointment listed below, please call your physician and schedule a follow-up appointment. If you have congestive heart failure and your symptoms return, make an appointment with your physician. Medication List: Carry an up to date list of medications you are taking at all time. We have given you an updated medication list including any new medications that you have been prescribed. Please provide that list to your primary provider Symptoms: If your condition changes or you experience any of the following symptoms, notify your physician immediately: Unusual or worsening pain, fever, persistent nausea and vomiting, bleeding, increase in swelling (especially in your legs), sudden weight gain, extreme dizziness, chest pain, increased drainage or redness from a wound or incision. Go to the emergency department if you experience a problem with breathing. Weights: If you have a history of swelling or shortness of breath, weigh yourself daily and notify your physician if you have a weight gain of two or more pounds in one day or 5 or more pounds in a week. If you experience any of the warning signs for stroke: Sudden numbness or weakness of the face, arm or leg; especially on one side of the body, sudden confusion, trouble speaking or understanding, sudden trouble seeing in one or both eyes, sudden trouble walking, dizziness, loss of balance or coordination, sudden sever headache with no cause; Call 911 or go to the emergency room. Stroke is a medical emergency. Some risk factors for stroke: Age, cigarette smoking, diabetes, excessive alcohol consumption, family history , high blood pressure, overweight, physical inactivity, prior stroke, heart attack, diagnosis of carotid artery stenosis or other artery disease. If you smoke, STOP: Smoking or tobacco use significantly increases your risk of heart and lung disease. Your chance of disease greatly increases if you continue to smoke. For more information, call the [place] tobacco quit line for smoking cessation 7-555- QUIT-NOW ( ) Referrals: Alcon Ruff, [Primary Care Provider] - 10/19/17 11:30 am
--- NOTE | 2017-10-13 19:01 | Electrocardiograph Report ---
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
== END 2017-10-13 10:32 | disposition home or self-care (01) ==
LOC: 3BNU 19:34 → EMEROO 19:34 → SUATTDRO 22:59 → 3BNU 10-12 00:04
PROVIDERS: ADMIT Internal Medicine; ATTEND Internal Medicine